=== PATIENT | female | born 1990 | race Caucasian/White ===

== ENCOUNTER 2018-05-26 10:05 | Emergency (ER) | payer OTHER ==
--- NOTE | 2018-05-26 11:59 | ED Physician Documentation ---
PD HPI CHEST PAIN - Stated complaint Stated Complaint: BP HIGH - Chief complaint Chief Complaint: Heent - History obtained from History obtained from: Patient - History of Present Illness Timing - onset: How many weeks ago (1-2 weeks of) Timing - onset during: Rest. No: Exertion Timing - duration: Minutes Timing - details: Intermittant (she has had 2 weeks of intermittent, nonexertional left chest pains, dul and brief, not related to activity, eating, position, nor breathing. 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 Has not checked it in AM or evening. States it historically has been 120s systolic.) Quality: Aching Location: Left chest Radiation: No: Jaw, Neck, Back Worsened by: Movement. No: Exertion, Inspiration, Eating, Palpation Associated symptoms: No: Shortness of air, Nausea, Feeling faint / dizzy, Palpitations Similar symptoms before: Has not had sx before Recently seen: Not recently seen Review of Systems Constitutional: denies: Fever Nose: denies: Rhinorrhea / runny nose, Congestion Throat: denies: Sore throat Respiratory: reports: Cough (a month ago, improved) GI: denies: Abdominal Pain, Nausea, Vomiting Skin: denies: Rash Neurologic: denies: Near syncope, Syncope, Altered mental status PD PAST MEDICAL HISTORY - Past Medical History Past Medical History: No - Past Surgical History Past Surgical History: No - Present Medications Home Medications: Ambulatory Orders Medication Instructions Recorded Confirmed Losartan Potassium 25 mg PO DAILY #30 tablet 05/26/18 Naproxen 375 mg PO BID #20 tablet 05/26/18 - Allergies Allergies/Adverse Reactions: Allergies Allergy/AdvReac Type Severity Reaction Status Date / Time No Known Drug Allergies Allergy Verified 05/26/18 10:28 - Social History Does the pt smoke?: No Smoking Status: Never smoker Does the pt drink ETOH?: No Does the pt have substance abuse?: No - Immunizations Immunizations are current?: Yes PD ED PE NORMAL - Vitals Vital signs reviewed: Yes - General General: Alert and oriented X 3, No acute distress, Well developed/nourished - HEENT HEENT: Pharynx benign - Neck Neck: Supple, no meningeal sign, No adenopathy - Cardiac Cardiac: RRR, No murmur - Respiratory Respiratory: Clear bilaterally - Abdomen Abdomen: Soft, Non tender - Derm Derm: Normal color, Warm and dry - Extremities Extremities: No deformity, No tenderness to palpate, Normal ROM s pain, No edema, No calf tenderness / cord - Neuro Neuro: Alert and oriented X 3, No motor deficit, Normal speech Results - Vitals Vitals: Oxygen O2 Source Room air - EKG (time done) 10:26 Rate: Rate (enter#) (104) Rhythm: Sinus tachycardia [place]: Normal Intervals: Normal [place] QRS: Normal Ischemia: Normal ST segments. No: ST elevation c/w ischemia, ST depression - Labs Labs: Laboratory Tests 05/26/18 05/26/18 05/26/18 12:45 12:45 12:45 WBC 10.2 RBC 4.48 Hgb 12.7 Hct 38.4 MCV 85.8 MCH 28.3 MCHC 33.0 RDW 13.8 Plt Count 189 MPV 10.2 Neut # (Auto) 6.6 Lymph # (Auto) 3.0 Yell # (Auto) 0.4 Eos # (Auto) 0.1 Baso # (Auto) 0.0 Absolute Nucleated RBC 0.00 Nucleated RBC % 0.0 Sodium 135 Potassium 3.7 Chloride 99 L Carbon Dioxide 25 Anion Gap 11.0 BUN 11 Creatinine 0.5 Estimated GFR (MDRD) 145 Glucose 89 Calcium 9.0 Total Bilirubin 0.9 AST 24 ALT 28 Alkaline Phosphatase 61 Total Protein 7.3 Albumin 4.1 Globulin 3.2 Albumin/Globulin Ratio 1.3 Lipase 24 TSH 0.94 - Rads (name of study) chest xray Radiology: Prelim report reviewed, EMP read contemporaneously (normal. normal heart size), See rad report PD MEDICAL DECISION MAKING - ED course Complexity details: considered differential (nonexertional CP, brief at times. Also noted BP high the past 2 weeks during clinical assessments for school during the day. Would want to see consistent trend and not during high stress time of day before starting BP med. the CP does not sound anginal. Random, brief, not related to activity. ), d/w patient Departure - Departure Disposition: Home, Self Care Clinical Impression: Chest pain of uncertain etiology, Blood pressure elevated without history of HTN Condition: Stable Record reviewed to determine appropriate education?: Yes Instructions: ED Chest Pain Atypical Unkn Cause, ED Hypertension Poss Follow-Up: ANA VILLAVICENCIO [Primary Care Provider] - Prescriptions: Losartan Potassium 25 mg PO DAILY #30 tablet Naproxen 375 mg PO BID #20 tablet Comments: Your ECG, Chest x-ray, basic blood tests are normal. No signs of more significant cause of the chest discomfort. Presume it might be muscular and consider using some Aleve or ibuprofen twice daily for the next week. Take with food so it does not bother you. Regular exercise 3 times a week for even 20 minutes at a time. Low salt diet. At this point I would see how your blood pressure does over the next week or so and see if it is more consistently elevated or just occasionally. If you do find it more consistently elevated then you could start the losartan 25 mg daily. Otherwise at this point I would just see how you do without medication. The higher blood pressure readings you have had recently may be situational in the sense of it was elevated to this circumstances and time of day that you took it and would be good to see if it is more normal in the morning or evening on a regular basis. Discharge Date/Time: 05/26/18 13:35
[2018-05-26 13:09] LABS: BASOPHILS % (AUTO) 0.5 %; EOSINOPHILS # (AUTO) 0.1 10^3/uL (0.0-0.7); HGB - HEMOGLOBIN 12.7 g/dL (12.0-16.0); LYMPHOCYTES % (AUTO) 29.7 %; MEAN CORPUSCULAR HEMOGLOBIN 28.3 pg (27.0-31.0); MEAN CORPUSCULAR VOLUME 85.8 fL (81.0-99.0); MEAN PLATELET VOLUME 10.2 fL (7.9-10.8); MONOCYTES # (AUTO) 0.4 10^3/uL (0.0-1.0); MONOCYTES % (AUTO) 4.1 %; NEUTROPHILS # (AUTO) 6.6 10^3/uL (1.5-6.6); NEUTROPHILS % (AUTO) 64.7 %; PLT - PLATELET COUNT 189 10^3/uL (130-450); RED BLOOD COUNT 4.48 10^6/uL (4.20-5.40); RED CELL DISTRIBUTION WIDTH 13.8 % (12.0-15.0); WHITE BLOOD COUNT 10.2 x10^3/uL (4.8-10.8)
[2018-05-26 13:12] LABS: ALBUMIN 4.1 g/dL (3.2-5.5); ALBUMIN/GLOBULIN RATIO 1.3 (1.0-2.2); BILIRUBIN,TOTAL 0.9 mg/dL (0.2-1.0); CREATININE 0.5 mg/dL (0.4-1.0); TOTAL PROTEIN 7.3 g/dL (6.7-8.2)
--- NOTE | 2018-05-26 13:12 | XRAY Report ---
Reason: chest pain Procedure Date: 05/26/2018 Accession Number: [id number] / [id number] Procedure: XR - Chest 1 View X-Ray CPT Code: 79104 FULL RESULT: EXAM: CHEST RADIOGRAPHY EXAM DATE: 05/26/2018 12:45 PM. CLINICAL HISTORY: Chest pain. COMPARISON: None. TECHNIQUE: 1 view. FINDINGS: Lungs/Pleura: No focal opacities evident. No pleural effusion. No pneumothorax. Mediastinum: Within exam limitations, the cardiomediastinal contour is normal. Other: None. IMPRESSION: Normal single view chest. RADIA
[2018-05-26 13:27] VITALS: BP 128/81
== END 2018-05-26 13:35 | disposition home or self-care (01) ==
LOC: ED 10:05
DX: R07.9 Chest pain, unspecified (principal); R03.0 Elevated blood-pressure reading, without diagnosis of hypertension; R00.0 Tachycardia, unspecified
CPT/HCPCS: 36415; 71045; 80053; 83690; 84443; 85025; 93005; 99283

== ENCOUNTER 2019-10-31 20:52 | Emergency (ER) | payer OTHER ==
[2019-10-31 21:17] VITALS: BP 145/100
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
== END 2019-11-01 00:14 | disposition home or self-care (01) ==
LOC: ED 20:52
DX: S16.1XXA Strain of muscle, fascia and tendon at neck level, initial encounter (principal); M25.511 Pain in right shoulder; M25.512 Pain in left shoulder; Y04.2XXA Assault by strike against or bumped into by another person, initial encounter; Y93.F9 Activity, other caregiving; Y92.230 Patient room in hospital as the place of occurrence of the external cause; Y99.0 Civilian activity done for income or pay
CPT/HCPCS: 99281; 99282

== ENCOUNTER 2023-01-18 09:54 | Day surgery (SDC) | payer OTHER ==
[2023-01-18] MEDS ORDERED: LACTATED RINGERS 1,000 ML IV ONE ×3 (10:18→12:09)
[2023-01-18 10:26] LABS: HCG UR QUAL NEGATIVE
--- NOTE | 2023-01-18 11:07 | ANESTHESIA ---
Pre-Anesthesia VS, & Labs - Diagnosis family history of colon cancer - Procedure colonoscopy Vital Signs: Temp Pulse Resp BP Pulse Ox O2 Flow Rate 36.7 C 71 15 134/90 H 97 01/18/23 10:27 01/18/23 10:27 01/18/23 10:27 01/18/23 10:27 01/18/23 10:27 Height: 5 ft 3 in Weight (kg): 110.9 kg Body Mass Index: 43.3 BMI Classification: Morbidly Obese - NPO >8 hours - Is Patient ?: No Home Medications and Allergies Home Medications: Ambulatory Orders No Known Home Medications 01/18/23 No Known Home Medications 01/18/23 Allergies/Adverse Reactions: Allergies Allergy/AdvReac Type Severity Reaction Status Date / Time No Known Drug Allergies Allergy Verified 10/31/19 21:16 Anes History & Medical History - Anesthetic History Anesthesia Complications: reports: No previous complications - Medical History Cardiovascular: reports: None Pulmonary: reports: None Gastrointestinal: reports: None Urinary: reports: None Neuro: reports: None Musculoskeletal: reports: Fibromyalgia Endocrine/Autoimmune: reports: None Skin: reports: None Smoking Status: Former smoker (quit 2018) Psychosocial: reports: No issues indicated History of Cancer?: No - Surgical History Gynecologic: reports: Dilation and currettage Exam General: Alert, Oriented x3, Cooperative, No acute distress Dental: WNL Mouth Openin Fingerbreadth Neck Mobility: Normal Mallampati classification: III Thyromental Distance: 4-6 cm Mental/Cognitive Status: Alert/Oriented X3, Normal for patient Plan Anesthesia Type: General, Total IV Consent for Procedure(s) Verified and Reviewed: Yes Code Status: Attempt Resuscitation ASA classification: 2-Mild systemic disease Is this case an emergency?: No
[2023-01-18] MEDS ORDERED: MIDAZOLAM 2 MG/2 ML VIAL ONE (11:49)
[2023-01-18] MEDS ORDERED: PROPOFOL 500 MG/50 ML 500 MG/50 ML VIAL ONE (12:14)
[2023-01-18 13:02] VITALS: BP 123/84; O2SAT 98
--- NOTE | 2023-01-18 13:44 | ANESTHESIA POST OP EVALUATION ---
Anesthesia Post Eval - Post Anesthesia Eval Vitals: Last Vital Signs Temp 36.5 C 01/18/23 12:30 Pulse 91 01/18/23 12:30 Resp 16 01/18/23 12:30 BP 123/84 H 01/18/23 12:30 Pulse Ox 98 01/18/23 12:30 O2 Flow Rate CV Function Including HR & BP: Stable Pain Control: Satisfactory Nausea & Vomiting: Negative Mental Status: Baseline Respiratory Status: Airway Patent Hydration Status: Satisfactory Anesthesia Complications: None
== END 2023-01-18 09:55 | disposition home or self-care (01) ==
LOC: SDS 09:54
PROVIDERS: ATTEND Surgery
PROC: 0DBN8ZZ Excision of Sigmoid Colon, Via Natural or Artificial Opening Endoscopic (ICD-10-PCS; principal; 2023-01-18 11:00)
DX: Z12.11 Encounter for screening for malignant neoplasm of colon (principal); D12.5 Benign neoplasm of sigmoid colon; E66.01 Morbid (severe) obesity due to excess calories; Z68.41 Body mass index [BMI] 40.0-44.9, adult; Z80.0 Family history of malignant neoplasm of digestive organs; Z87.891 Personal history of nicotine dependence
CPT/HCPCS: 45385; 81025; J7120